=== PATIENT | female | born 1995 | race African-American/Black ===

== ENCOUNTER 2016-09-18 10:33 | Emergency (ER) | payer SELFPAY ==
[~2016-09-18] VITALS: Ht 167.6 cm; Wt 97.7 kg
[~2016-09-18 10:33] MED LIST: CEPHALEXIN500 MG PO
[2016-09-18 11:30] LABS: INFLUENZA A NONE DETECTED (NONE DETECT); INFLUENZA B NONE DETECTED (NONE DETECT)
[2016-09-18] MEDS ORDERED: MOTRIN800 MG PO (12:19)
[2016-09-18] MEDS ORDERED: CLINDAMYCIN300 M1 PO (12:19)
[2016-09-18 12:49] VITALS: BP 109/69
== END 2016-09-18 12:55 | disposition home or self-care (01) | DRG 153 ==
LOC: ED 10:33
PROVIDERS: Emergency Medicine
DX: J02.9 Acute pharyngitis, unspecified (principal); F17.290 Nicotine dependence, other tobacco product, uncomplicated; R50.9 Fever, unspecified; R10.10 Upper abdominal pain, unspecified; R11.0 Nausea

== ENCOUNTER 2016-10-29 15:02 | Emergency (ER) | payer SELFPAY ==
[~2016-10-29] VITALS: Ht 167.6 cm; Wt 100.0 kg
[~2016-10-29 15:02] MED LIST changes: +CLINDAMYCIN300 M1 PO; +MOTRIN800 MG PO
[2016-10-29 15:52] LABS: URINE BILIRUBIN - DIPSTICK NEGATIVE (NEGATIVE); URINE BLOOD DIPSTICK MODERATE (NEGATIVE); URINE COLOR YELLOW; URINE GLUCOSE - DIPSTICK NEGATIVE (NEGATIVE); URINE KETONE NEGATIVE (NEGATIVE); URINE NITRITE - DIPSTICK NEGATIVE (Negative); URINE PROTEIN - DIPSTICK NEGATIVE (NEG-TRACE); URINE SPECIFIC GRAVITY 1.015; URINE UROBILINOGEN - DIPSTICK 0.2 E.U./dL (0.2)
[2016-10-29] MEDS ORDERED: PYRIDIUM200 MG PO (15:55)
[2016-10-29] MEDS ORDERED: BACTRIM DS1 TAB PO (15:55)
[2016-10-29 15:58] LABS: URINE CLARITY CLOUDY; URINE LEUK ESTERASE LARGE (NEGATIVE)
[2016-10-29 16:00] LABS: URINE BACTERIA FEW hpf; URINE RBC 25-50 RBC/hpf (0-5); URINE SQUAMOUS EPITHELIAL CELL FEW EPI/hpf (0-FEW); URINE WBC TNTC WBC/hpf (0-5)
[2016-10-29 16:07] VITALS: BP 133/80
== END 2016-10-29 16:07 | disposition home or self-care (01) | DRG 690 ==
LOC: ED 15:02
PROVIDERS: Emergency Medicine
DX: N39.0 Urinary tract infection, site not specified (principal); B96.20 Unspecified Escherichia coli [E. coli] as the cause of diseases classified elsewhere; F17.210 Nicotine dependence, cigarettes, uncomplicated

== ENCOUNTER 2016-11-10 20:36 | Emergency (ER) | payer SELFPAY ==
[~2016-11-10] VITALS: Ht 167.6 cm; Wt 100.0 kg
[~2016-11-10 20:36] MED LIST changes: +BACTRIM DS1 TAB PO; +PYRIDIUM200 MG PO
[2016-11-10] MEDS ORDERED: CEPHALEXIN500 MG PO (21:40)
[2016-11-10] MEDS ORDERED: ULTRAM50 M1 PO (21:40)
[2016-11-10] MEDS ORDERED: BACTRIM DS1 TAB PO (21:43)
[2016-11-10 21:51] VITALS: BP 125/84
== END 2016-11-10 22:00 | disposition home or self-care (01) | DRG 603 ==
LOC: ED 20:36
PROC: 0X950ZZ Drainage of Left Axilla, Open Approach (ICD-10-PCS; principal; 2016-11-10)
DX: L02.412 Cutaneous abscess of left axilla (principal); B96.4 Proteus (mirabilis) (morganii) as the cause of diseases classified elsewhere; F17.210 Nicotine dependence, cigarettes, uncomplicated

== ENCOUNTER 2016-11-12 19:53 | Emergency (ER) | payer SELFPAY ==
[~2016-11-12] VITALS: Ht 167.6 cm; Wt 100.0 kg
[~2016-11-12 19:53] MED LIST changes: +ULTRAM50 M1 PO
[2016-11-12 20:45] VITALS: BP 124/83
== END 2016-11-12 20:45 | disposition home or self-care (01) | DRG 603 ==
LOC: ED 19:53
DX: L02.412 Cutaneous abscess of left axilla (principal); F17.210 Nicotine dependence, cigarettes, uncomplicated

== ENCOUNTER 2017-01-08 21:00 | Emergency (ER) | payer SELFPAY ==
[~2017-01-08] VITALS: Ht 167.6 cm; Wt 100.6 kg
[2017-01-08 21:30] LABS: URINE BILIRUBIN - DIPSTICK NEGATIVE (NEGATIVE); URINE BLOOD DIPSTICK TRACE-INTACT (NEGATIVE); URINE COLOR YELLOW; URINE GLUCOSE - DIPSTICK NEGATIVE (NEGATIVE); URINE KETONE NEGATIVE (NEGATIVE); URINE LEUK ESTERASE NEGATIVE (NEGATIVE); URINE NITRITE - DIPSTICK NEGATIVE (Negative); URINE PH 5.5 (4.5-8.0); URINE PROTEIN - DIPSTICK NEGATIVE (NEG-TRACE); URINE SPECIFIC GRAVITY 1.025; URINE UROBILINOGEN - DIPSTICK 0.2 E.U./dL (0.2)
[2017-01-08 21:35] LABS: URINE CLARITY CLEAR
[2017-01-08 22:02] LABS: HEMATOCRIT 38.3 % (37.0-47.0); HEMOGLOBIN 13.2 g/dl (12.0-16.0); IMMATURE GRANULOCYTES 0.4 % (0.0-1.0); MEAN CELL VOLUME 88.5 fL CALC (80.0-100.0); MEAN CORPUSCULAR HGB 30.5 pG CALC (26.0-32.0); MEAN CORPUSCULAR HGB CONC 34.5 g/L CALC (32.0-36.0); NEUT# 4.11 thou/uL (2.00-7.15); RED BLOOD COUNT 4.33 mill/uL (4.20-5.60); RED CELL DISTRI WIDTH 13.7 % (11.5-15.5)
[2017-01-08 22:19] LABS: ALBUMIN 3.8 g/dL (3.2-5.0); ALKALINE PHOSPHATASE 65 u/l (38-126); ANION GAP 15 (6-22 (CALC)); BILIRUBIN, TOTAL 0.4 mg/dL (0.0-1.4); BUN 8 mg/dL (7-17); BUN/CREATININE RATIO 14 (12-20 (CALC)); CALCIUM 9.3 mg/dL (8.4-10.2); CARBON DIOXIDE 23 mmol/l (22-30); CHLORIDE 106 mmol/l (95-108); CREATININE 0.6 mg/dL (0.5-1.0); GFR > 60 ML/MIN (>=60 (CALC)); GFR FOR AFR.AMER. > 60 ML/MIN (>=60 (CALC)); GLUCOSE 95 mg/dL (65-105); SGOT/AST 20 u/l (14-36); SGPT/ALT 36 u/l (9-52); SODIUM 139 mmol/l (137-146); TOTAL PROTEIN 7.1 g/dL (6.3-8.2)
[2017-01-08 22:36] LABS: BETA-HCG, QUANT(RESULT NUMBER) 11673 mIU/mL
[2017-01-08 23:10] VITALS: BP 129/85
== END 2017-01-08 23:10 | disposition home or self-care (01) | DRG 392 ==
LOC: ED 21:00
PROVIDERS: Emergency Medicine
DX: R10.30 Lower abdominal pain, unspecified (principal); F17.210 Nicotine dependence, cigarettes, uncomplicated; R11.0 Nausea; R35.0 Frequency of micturition; Z33.1 Pregnant state, incidental; R50.9 Fever, unspecified

== ENCOUNTER 2017-01-15 23:20 | Emergency (ER) | payer SELFPAY ==
[~2017-01-15] VITALS: Ht 167.6 cm; Wt 101.2 kg
[2017-01-16 00:27] VITALS: BP 120/75
== END 2017-01-16 00:35 | disposition home or self-care (01) | DRG 781 ==
LOC: ED 23:20
DX: O26.891 Other specified pregnancy related conditions, first trimester (principal); R07.89 Other chest pain; Z3A.00 Weeks of gestation of pregnancy not specified

== ENCOUNTER 2017-01-25 02:19 | Emergency (ER) | payer OTHER ==
[~2017-01-25] VITALS: Ht 167.6 cm; Wt 100.4 kg
[2017-01-25 03:05] LABS: URINE BILIRUBIN - DIPSTICK NEGATIVE (NEGATIVE); URINE BLOOD DIPSTICK NEGATIVE (NEGATIVE); URINE COLOR YELLOW; URINE GLUCOSE - DIPSTICK NEGATIVE (NEGATIVE); URINE KETONE TRACE mg/dL (NEGATIVE); URINE LEUK ESTERASE NEGATIVE (NEGATIVE); URINE NITRITE - DIPSTICK NEGATIVE (Negative); URINE PROTEIN - DIPSTICK NEGATIVE (NEG-TRACE); URINE SPECIFIC GRAVITY 1.015; URINE UROBILINOGEN - DIPSTICK 0.2 E.U./dL (0.2)
[2017-01-25 03:05] LABS: HEMATOCRIT 36.1 % (37.0-47.0); HEMOGLOBIN 12.5 g/dl (12.0-16.0); IMMATURE GRANULOCYTES 0.3 % (0.0-1.0); MEAN CELL VOLUME 87.4 fL CALC (80.0-100.0); MEAN CORPUSCULAR HGB 30.3 pG CALC (26.0-32.0); MEAN CORPUSCULAR HGB CONC 34.6 g/L CALC (32.0-36.0); NEUT# 6.96 thou/uL (2.00-7.15); RED BLOOD COUNT 4.13 mill/uL (4.20-5.60); RED CELL DISTRI WIDTH 13.3 % (11.5-15.5)
[2017-01-25 03:07] LABS: URINE CLARITY SL CLOUDY
[2017-01-25 03:19] LABS: ALBUMIN 3.9 g/dL (3.2-5.0); ALKALINE PHOSPHATASE 56 u/l (38-126); ANION GAP 14 (6-22 (CALC)); BILIRUBIN, TOTAL 0.4 mg/dL (0.0-1.4); BUN 10 mg/dL (7-17); BUN/CREATININE RATIO 17 (12-20 (CALC)); CALCIUM 9.4 mg/dL (8.4-10.2); CARBON DIOXIDE 22 mmol/l (22-30); CHLORIDE 105 mmol/l (95-108); CREATININE 0.6 mg/dL (0.5-1.0); GFR > 60 ML/MIN (>=60 (CALC)); GFR FOR AFR.AMER. > 60 ML/MIN (>=60 (CALC)); GLUCOSE 101 mg/dL (65-105); POTASSIUM 3.8 mmol/l (3.5-5.1); SGOT/AST 22 u/l (14-36); SGPT/ALT 38 u/l (9-52); SODIUM 138 mmol/l (137-146); TOTAL PROTEIN 7.2 g/dL (6.3-8.2)
[2017-01-25 04:00] LABS: BETA-HCG, QUANT(RESULT NUMBER) 51779 mIU/mL
[2017-01-25 04:10] VITALS: BP 141/81
== END 2017-01-25 04:10 | disposition home or self-care (01) | DRG 923 ==
LOC: ED 02:19
PROVIDERS: Emergency Medicine
DX: Z04.1 Encounter for examination and observation following transport accident (principal); O26.891 Other specified pregnancy related conditions, first trimester; R10.9 Unspecified abdominal pain; V89.2XXA Person injured in unspecified motor-vehicle accident, traffic, initial encounter; Z3A.01 Less than 8 weeks gestation of pregnancy

== ENCOUNTER 2017-09-17 12:45 | Emergency (ER) | payer OTHER ==
[~2017-09-17] VITALS: Ht 167.6 cm; Wt 106.0 kg
[2017-09-17 14:01] VITALS: BP 116/76
== END 2017-09-17 14:00 | disposition home or self-care (01) ==
LOC: ED 12:45
DX: R10.30 Lower abdominal pain, unspecified (principal); Z98.890 Other specified postprocedural states

== ENCOUNTER 2022-04-28 17:44 | Emergency (ER) | payer MEDICAID ==
[~2022-04-28] VITALS: Ht 167.6 cm; Wt 102.4 kg
[2022-04-28] VITALS (7 sets, daily range): BP systolic 127–140; BP diastolic 85–92
[2022-04-28] MEDS ORDERED: ZYRTEC10 MG PO (20:25)
[2022-04-28] MEDS ORDERED: ZPAK PO (20:25)
[2022-04-28] MEDS ORDERED: PROAIR HFA IN (20:26)
[2022-04-29] MEDS ORDERED: ZPAK PO (11:37)
[2022-04-29] MEDS ORDERED: PROAIR HFA IN (11:37)
[2022-04-29] MEDS ORDERED: ZYRTEC10 MG PO (11:37)
== END 2022-04-28 21:14 | disposition home or self-care (01) ==
LOC: ED 17:44
DX: J06.9 Acute upper respiratory infection, unspecified (principal); Z20.822 Contact with and (suspected) exposure to COVID-19